=== PATIENT | male | born 1950 | race Caucasian/White ===

== ENCOUNTER 2022-11-16 13:48 | Outpatient (CLI) | payer BC | END 2022-11-16 13:49 | disposition home or self-care (01) | LOC: CSHWCC 13:48 | PROVIDERS: ATTEND Nurse Practitioner Family | DX: E11.621 Type 2 diabetes mellitus with foot ulcer (principal); L97.415 Non-pressure chronic ulcer of right heel and midfoot with muscle involvement without evidence of necrosis; R60.0 Localized edema | CPT/HCPCS: 99203; G0463 ==

== ENCOUNTER 2022-11-24 08:01 | Outpatient (CLI) | payer BC | END 2022-11-24 08:02 | disposition home or self-care (01) | LOC: CSHWCC 08:01 | PROVIDERS: ATTEND Nurse Practitioner Family | DX: E11.621 Type 2 diabetes mellitus with foot ulcer (principal); L97.415 Non-pressure chronic ulcer of right heel and midfoot with muscle involvement without evidence of necrosis; R60.0 Localized edema ==

== ENCOUNTER 2022-11-28 08:37 | Outpatient (CLI) | payer BC | END 2022-11-28 08:38 | disposition home or self-care (01) | LOC: CSHWCC 08:37 | PROVIDERS: ATTEND Nurse Practitioner Family | DX: E11.621 Type 2 diabetes mellitus with foot ulcer (principal); L97.415 Non-pressure chronic ulcer of right heel and midfoot with muscle involvement without evidence of necrosis; R60.0 Localized edema | CPT/HCPCS: 11042; 29445 ==

== ENCOUNTER 2022-12-26 11:00 | Outpatient (CLI) | payer BC | END 2022-12-26 11:01 | disposition home or self-care (01) | LOC: CSHWCC 11:00 | PROVIDERS: ATTEND Nurse Practitioner Family | DX: E11.621 Type 2 diabetes mellitus with foot ulcer (principal); L97.415 Non-pressure chronic ulcer of right heel and midfoot with muscle involvement without evidence of necrosis; R60.0 Localized edema | CPT/HCPCS: 29445 ==

== ENCOUNTER 2023-01-02 11:44 | Outpatient (CLI) | payer BC | END 2023-01-02 11:45 | disposition home or self-care (01) | LOC: CSHWCC 11:44 | PROVIDERS: ATTEND Nurse Practitioner Family | DX: E11.621 Type 2 diabetes mellitus with foot ulcer (principal); L97.415 Non-pressure chronic ulcer of right heel and midfoot with muscle involvement without evidence of necrosis; R60.0 Localized edema | CPT/HCPCS: 29445; 99212; G0463 ==

== ENCOUNTER → 2023-01-05 | Outpatient (CLI) | payer BC | LOC: CSHWCC 11:00 | PROVIDERS: ATTEND Nurse Practitioner Family | DX: E11.621 Type 2 diabetes mellitus with foot ulcer (principal); L97.415 Non-pressure chronic ulcer of right heel and midfoot with muscle involvement without evidence of necrosis; R60.0 Localized edema | CPT/HCPCS: 29445; 99212; G0463 ==

== ENCOUNTER 2023-01-19 09:42 | Outpatient (CLI) | payer BC | END 2023-01-19 09:43 | disposition home or self-care (01) | LOC: CSHWCC 09:42 | PROVIDERS: ATTEND Nurse Practitioner Family | DX: E11.621 Type 2 diabetes mellitus with foot ulcer (principal); L97.415 Non-pressure chronic ulcer of right heel and midfoot with muscle involvement without evidence of necrosis; R60.0 Localized edema | CPT/HCPCS: 29445; 29581; 97597 ==

== ENCOUNTER 2023-01-31 08:48 | Outpatient (CLI) | payer BC | END 2023-01-31 08:49 | disposition home or self-care (01) | LOC: CSHWCC 08:48 | PROVIDERS: ATTEND Nurse Practitioner Family | DX: E11.621 Type 2 diabetes mellitus with foot ulcer (principal); L97.415 Non-pressure chronic ulcer of right heel and midfoot with muscle involvement without evidence of necrosis | CPT/HCPCS: 29581; 99211; G0463 ==

== ENCOUNTER 2023-02-07 13:39 | Outpatient (CLI) | payer BC | END 2023-02-07 13:40 | disposition home or self-care (01) | LOC: CSHWCC 13:39 | PROVIDERS: ATTEND Nurse Practitioner Family | DX: R60.9 Edema, unspecified (principal) | CPT/HCPCS: 99213; G0463 ==

== ENCOUNTER 2023-02-21 14:49 | Outpatient (CLI) | payer BC | END 2023-02-21 14:50 | disposition home or self-care (01) | LOC: CSHWCC 14:49 | PROVIDERS: ATTEND Nurse Practitioner Family | DX: E11.621 Type 2 diabetes mellitus with foot ulcer (principal); L97.415 Non-pressure chronic ulcer of right heel and midfoot with muscle involvement without evidence of necrosis; R60.9 Edema, unspecified | CPT/HCPCS: 29445; 97597 ==

== ENCOUNTER 2023-03-01 08:29 | Outpatient (CLI) | payer BC | END 2023-03-01 08:30 | disposition home or self-care (01) | LOC: CSHWCC 08:29 | PROVIDERS: ATTEND Nurse Practitioner Family | DX: E11.621 Type 2 diabetes mellitus with foot ulcer (principal); L97.415 Non-pressure chronic ulcer of right heel and midfoot with muscle involvement without evidence of necrosis; R60.0 Localized edema | CPT/HCPCS: 99213; G0463 ==

== ENCOUNTER 2023-03-05 14:47 | Outpatient (CLI) | payer BC | END 2023-03-05 14:48 | disposition home or self-care (01) | LOC: CSHWCC 14:47 | PROVIDERS: ATTEND Nurse Practitioner Family | DX: E11.621 Type 2 diabetes mellitus with foot ulcer (principal); L97.415 Non-pressure chronic ulcer of right heel and midfoot with muscle involvement without evidence of necrosis | CPT/HCPCS: 97602 ==

== ENCOUNTER 2023-03-19 11:19 | Outpatient (CLI) | payer BC | END 2023-03-19 11:20 | disposition home or self-care (01) | LOC: CSHWCC 11:19 | PROVIDERS: ATTEND Nurse Practitioner Family | DX: E11.621 Type 2 diabetes mellitus with foot ulcer (principal); L97.419 Non-pressure chronic ulcer of right heel and midfoot with unspecified severity | CPT/HCPCS: 11042 ==

== ENCOUNTER 2023-03-29 14:09 | Outpatient (CLI) | payer BC | END 2023-03-29 14:10 | disposition home or self-care (01) | LOC: CSHWCC 14:09 | PROVIDERS: ATTEND Nurse Practitioner Family | DX: E11.621 Type 2 diabetes mellitus with foot ulcer (principal); L97.419 Non-pressure chronic ulcer of right heel and midfoot with unspecified severity | CPT/HCPCS: 97602 ==

== ENCOUNTER 2023-05-10 09:47 | Outpatient (CLI) | payer BC | END 2023-05-10 09:48 | disposition home or self-care (01) | LOC: CSHWCC 09:47 | PROVIDERS: ATTEND Preventive Medicine Undersea and Hyperbaric Medicine | DX: E11.621 Type 2 diabetes mellitus with foot ulcer (principal); L97.419 Non-pressure chronic ulcer of right heel and midfoot with unspecified severity | CPT/HCPCS: 99212; G0463 ==

== ENCOUNTER 2023-06-20 09:16 | Outpatient (CLI) | payer BC | END 2023-06-20 09:17 | disposition home or self-care (01) | LOC: CSHWCC 09:16 | PROVIDERS: ATTEND Preventive Medicine Undersea and Hyperbaric Medicine | DX: E11.621 Type 2 diabetes mellitus with foot ulcer (principal); L97.419 Non-pressure chronic ulcer of right heel and midfoot with unspecified severity | CPT/HCPCS: 99213; G0463 ==

== ENCOUNTER 2023-07-03 10:29 | Outpatient (CLI) | payer BC | END 2023-07-03 10:30 | disposition home or self-care (01) | LOC: CSHWCC 10:29 | PROVIDERS: ATTEND Physician Assistant | DX: E11.621 Type 2 diabetes mellitus with foot ulcer (principal); L97.419 Non-pressure chronic ulcer of right heel and midfoot with unspecified severity | CPT/HCPCS: 97597 ==

== ENCOUNTER 2023-07-05 10:04 | Outpatient (CLI) | payer BC | END 2023-07-05 10:05 | disposition home or self-care (01) | LOC: CSHWCC 10:04 | PROVIDERS: ATTEND Physician Assistant | DX: E11.621 Type 2 diabetes mellitus with foot ulcer (principal); L97.419 Non-pressure chronic ulcer of right heel and midfoot with unspecified severity | CPT/HCPCS: 29581; 99212; G0463 ==

== ENCOUNTER 2023-07-09 09:49 | Outpatient (CLI) | payer BC | END 2023-07-09 09:50 | disposition home or self-care (01) | LOC: CSHWCC 09:49 | PROVIDERS: ATTEND Physician Assistant | DX: E11.621 Type 2 diabetes mellitus with foot ulcer (principal); L97.419 Non-pressure chronic ulcer of right heel and midfoot with unspecified severity | CPT/HCPCS: 99211; G0463 ==

== ENCOUNTER 2023-07-30 13:23 | Outpatient (CLI) | payer BC | END 2023-07-30 13:24 | disposition home or self-care (01) | LOC: CSHWCC 13:23 | PROVIDERS: ATTEND Preventive Medicine Undersea and Hyperbaric Medicine | DX: E11.621 Type 2 diabetes mellitus with foot ulcer (principal); L97.419 Non-pressure chronic ulcer of right heel and midfoot with unspecified severity; L03.115 Cellulitis of right lower limb | CPT/HCPCS: 11042; 87070; 87077; 87186; 87205; 99213; G0463 ==

== ENCOUNTER 2023-08-03 11:18 | Outpatient (CLI) | payer BC | END 2023-08-03 11:19 | disposition home or self-care (01) | LOC: CSHWCC 11:18 | PROVIDERS: ATTEND Preventive Medicine Undersea and Hyperbaric Medicine | DX: E11.621 Type 2 diabetes mellitus with foot ulcer (principal); L97.419 Non-pressure chronic ulcer of right heel and midfoot with unspecified severity; L03.115 Cellulitis of right lower limb | CPT/HCPCS: 11042 ==

== ENCOUNTER 2023-08-08 09:09 | Outpatient (CLI) | payer BC | END 2023-08-08 09:10 | disposition home or self-care (01) | LOC: CSHWCC 09:09 | PROVIDERS: ATTEND Preventive Medicine Undersea and Hyperbaric Medicine | DX: E11.621 Type 2 diabetes mellitus with foot ulcer (principal); L97.419 Non-pressure chronic ulcer of right heel and midfoot with unspecified severity; L03.115 Cellulitis of right lower limb | CPT/HCPCS: 99213; G0463 ==

== ENCOUNTER 2023-08-15 10:04 | Outpatient (CLI) | payer BC | END 2023-08-15 10:05 | disposition home or self-care (01) | LOC: CSHWCC 10:04 | PROVIDERS: ATTEND Physician Assistant | DX: E11.621 Type 2 diabetes mellitus with foot ulcer (principal); L97.419 Non-pressure chronic ulcer of right heel and midfoot with unspecified severity; L03.115 Cellulitis of right lower limb | CPT/HCPCS: 11042 ==

== ENCOUNTER 2023-08-22 14:57 | Outpatient (CLI) | payer BC | END 2023-08-22 14:58 | disposition home or self-care (01) | LOC: CSHWCC 14:57 | PROVIDERS: ATTEND Physician Assistant | DX: E11.621 Type 2 diabetes mellitus with foot ulcer (principal); L97.419 Non-pressure chronic ulcer of right heel and midfoot with unspecified severity | CPT/HCPCS: 97597 ==

== ENCOUNTER 2023-08-31 09:29 | Outpatient (CLI) | payer BC | END 2023-08-31 09:30 | disposition home or self-care (01) | LOC: CSHWCC 09:29 | PROVIDERS: ATTEND Nurse Practitioner Family | DX: E11.621 Type 2 diabetes mellitus with foot ulcer (principal); L97.419 Non-pressure chronic ulcer of right heel and midfoot with unspecified severity | CPT/HCPCS: 11042 ==

== ENCOUNTER 2023-09-05 14:12 | Outpatient (CLI) | payer BC | END 2023-09-05 14:13 | disposition home or self-care (01) | LOC: CSHWCC 14:12 | PROVIDERS: ATTEND Nurse Practitioner Family | DX: E11.621 Type 2 diabetes mellitus with foot ulcer (principal); L97.419 Non-pressure chronic ulcer of right heel and midfoot with unspecified severity | CPT/HCPCS: 11042 ==

== ENCOUNTER 2023-09-12 16:36 | Outpatient (CLI) | payer BC | END 2023-09-12 16:37 | disposition home or self-care (01) | LOC: CSHWCC 16:36 | PROVIDERS: ATTEND Nurse Practitioner Family | DX: E11.621 Type 2 diabetes mellitus with foot ulcer (principal); L97.419 Non-pressure chronic ulcer of right heel and midfoot with unspecified severity | CPT/HCPCS: 11042 ==

== ENCOUNTER 2023-09-19 10:52 | Outpatient (CLI) | payer BC | END 2023-09-19 10:53 | disposition home or self-care (01) | LOC: CSHWCC 10:52 | PROVIDERS: ATTEND Nurse Practitioner Family | DX: E11.621 Type 2 diabetes mellitus with foot ulcer (principal); L97.419 Non-pressure chronic ulcer of right heel and midfoot with unspecified severity | CPT/HCPCS: 11042 ==

== ENCOUNTER 2023-10-02 | Outpatient (CLI) | payer BC | END 2023-10-02 13:24 | disposition home or self-care (01) | DX: E11.621 Type 2 diabetes mellitus with foot ulcer (principal); L97.419 Non-pressure chronic ulcer of right heel and midfoot with unspecified severity ==

== ENCOUNTER 2023-10-17 17:11 | Outpatient (CLI) | payer BC, MEDICARE | END 2023-10-17 17:12 | disposition home or self-care (01) | LOC: CSHWCC 17:11 | PROVIDERS: ATTEND Nurse Practitioner Family | DX: E11.621 Type 2 diabetes mellitus with foot ulcer (principal); L97.419 Non-pressure chronic ulcer of right heel and midfoot with unspecified severity | CPT/HCPCS: 11042 ==

== ENCOUNTER 2023-11-26 16:29 | Outpatient (CLI) | payer BC | END 2023-11-26 16:30 | disposition home or self-care (01) | LOC: CSHWCC 16:29 | PROVIDERS: ATTEND Family Medicine | DX: E11.621 Type 2 diabetes mellitus with foot ulcer (principal); L97.419 Non-pressure chronic ulcer of right heel and midfoot with unspecified severity | CPT/HCPCS: 29445 ==

== ENCOUNTER 2023-12-26 13:25 | Outpatient (CLI) | payer BC | END 2023-12-26 13:26 | disposition home or self-care (01) | LOC: CSHWCC 13:25 | PROVIDERS: ATTEND Nurse Practitioner Family | DX: E11.621 Type 2 diabetes mellitus with foot ulcer (principal); L97.419 Non-pressure chronic ulcer of right heel and midfoot with unspecified severity | CPT/HCPCS: 11042 ==

== ENCOUNTER → 2024-01-02 | Outpatient (CLI) | payer BC | LOC: CSHWCC 13:00 | PROVIDERS: ATTEND Nurse Practitioner Family | DX: E11.621 Type 2 diabetes mellitus with foot ulcer (principal); L97.419 Non-pressure chronic ulcer of right heel and midfoot with unspecified severity | CPT/HCPCS: 11042 ==

== ENCOUNTER 2024-01-11 14:55 | Outpatient (CLI) | payer BC | END 2024-01-11 14:56 | disposition home or self-care (01) | LOC: CSHWCC 14:55 | PROVIDERS: ATTEND Preventive Medicine Undersea and Hyperbaric Medicine | DX: E11.621 Type 2 diabetes mellitus with foot ulcer (principal); L97.419 Non-pressure chronic ulcer of right heel and midfoot with unspecified severity | CPT/HCPCS: 99213; G0463 ==

== ENCOUNTER 2024-01-16 14:48 | Outpatient (CLI) | payer BC | END 2024-01-16 14:49 | disposition home or self-care (01) | LOC: CSHWCC 14:48 | PROVIDERS: ATTEND Nurse Practitioner Family | DX: E11.621 Type 2 diabetes mellitus with foot ulcer (principal); L97.419 Non-pressure chronic ulcer of right heel and midfoot with unspecified severity | CPT/HCPCS: 11042 ==

== ENCOUNTER 2024-01-23 16:24 | Outpatient (CLI) | payer BC | END 2024-01-23 16:25 | disposition home or self-care (01) | LOC: CSHWCC 16:24 | PROVIDERS: ATTEND Nurse Practitioner Family | DX: E11.621 Type 2 diabetes mellitus with foot ulcer (principal); L97.419 Non-pressure chronic ulcer of right heel and midfoot with unspecified severity | CPT/HCPCS: 11042 ==

== ENCOUNTER → 2024-01-30 | Outpatient (CLI) | payer BC | LOC: CSHWCC 16:08 | PROVIDERS: ATTEND Nurse Practitioner Family | DX: E11.621 Type 2 diabetes mellitus with foot ulcer (principal); L97.419 Non-pressure chronic ulcer of right heel and midfoot with unspecified severity | CPT/HCPCS: 11042 ==

== ENCOUNTER 2024-02-06 15:37 | Outpatient (CLI) | payer BC | END 2024-02-06 15:38 | disposition home or self-care (01) | LOC: CSHWCC 15:37 | PROVIDERS: ATTEND Nurse Practitioner Family | DX: E11.621 Type 2 diabetes mellitus with foot ulcer (principal); L97.419 Non-pressure chronic ulcer of right heel and midfoot with unspecified severity | CPT/HCPCS: 11042 ==

== ENCOUNTER 2024-02-13 14:18 | Outpatient (CLI) | payer BC, MEDICARE | END 2024-02-13 14:19 | disposition home or self-care (01) | LOC: CSHWCC 14:18 | PROVIDERS: ATTEND Nurse Practitioner Family | DX: E11.621 Type 2 diabetes mellitus with foot ulcer (principal); L97.419 Non-pressure chronic ulcer of right heel and midfoot with unspecified severity | CPT/HCPCS: 97597 ==

== ENCOUNTER 2024-03-14 14:30 | Outpatient (CLI) | payer BC, MEDICARE | END 2024-03-14 14:31 | disposition home or self-care (01) | LOC: CSHWCC 14:30 | PROVIDERS: ATTEND Nurse Practitioner Family | DX: E11.621 Type 2 diabetes mellitus with foot ulcer (principal); L97.419 Non-pressure chronic ulcer of right heel and midfoot with unspecified severity | CPT/HCPCS: 11042 ==

== ENCOUNTER 2024-04-09 14:53 | Outpatient (CLI) | payer BC | END 2024-04-09 14:54 | disposition home or self-care (01) | LOC: CSHWCC 14:53 | PROVIDERS: ATTEND Nurse Practitioner Family | DX: S80.812D Abrasion, left lower leg, subsequent encounter (principal); E11.621 Type 2 diabetes mellitus with foot ulcer; L97.419 Non-pressure chronic ulcer of right heel and midfoot with unspecified severity; L97.422 Non-pressure chronic ulcer of left heel and midfoot with fat layer exposed | CPT/HCPCS: 11042; 97597 ==

== ENCOUNTER 2024-04-16 13:07 | Outpatient (CLI) | payer BC | END 2024-04-16 13:08 | disposition home or self-care (01) | LOC: CSHWCC 13:07 | PROVIDERS: ATTEND Nurse Practitioner Family | DX: S80.812D Abrasion, left lower leg, subsequent encounter (principal); E11.621 Type 2 diabetes mellitus with foot ulcer; L97.419 Non-pressure chronic ulcer of right heel and midfoot with unspecified severity; L97.422 Non-pressure chronic ulcer of left heel and midfoot with fat layer exposed | CPT/HCPCS: 11042 ==

== ENCOUNTER 2024-04-22 13:21 | Outpatient (CLI) | payer BC | END 2024-04-22 13:22 | disposition home or self-care (01) | LOC: CSHWCC 13:21 | PROVIDERS: ATTEND Nurse Practitioner Family | DX: E11.621 Type 2 diabetes mellitus with foot ulcer (principal); L97.419 Non-pressure chronic ulcer of right heel and midfoot with unspecified severity; S80.812D Abrasion, left lower leg, subsequent encounter; L97.422 Non-pressure chronic ulcer of left heel and midfoot with fat layer exposed | CPT/HCPCS: 99212; G0463 ==

== ENCOUNTER 2024-05-05 11:32 | Outpatient (CLI) | payer BC | END 2024-05-05 11:33 | disposition home or self-care (01) | LOC: CSHWCC 11:32 | PROVIDERS: ATTEND Nurse Practitioner Family | DX: S80.812D Abrasion, left lower leg, subsequent encounter (principal); E11.621 Type 2 diabetes mellitus with foot ulcer; L97.419 Non-pressure chronic ulcer of right heel and midfoot with unspecified severity; L97.422 Non-pressure chronic ulcer of left heel and midfoot with fat layer exposed | CPT/HCPCS: 11042 ==

== ENCOUNTER 2024-05-20 12:50 | Outpatient (CLI) | payer BC | END 2024-05-20 12:51 | disposition home or self-care (01) | LOC: CSHWCC 12:50 | PROVIDERS: ATTEND Nurse Practitioner Family | DX: E11.621 Type 2 diabetes mellitus with foot ulcer (principal); L97.419 Non-pressure chronic ulcer of right heel and midfoot with unspecified severity; L97.422 Non-pressure chronic ulcer of left heel and midfoot with fat layer exposed; S80.812D Abrasion, left lower leg, subsequent encounter | CPT/HCPCS: 97597 ==

== ENCOUNTER 2024-05-27 12:57 | Outpatient (CLI) | payer BC | END 2024-05-27 12:58 | disposition home or self-care (01) | LOC: CSHWCC 12:57 | PROVIDERS: ATTEND Nurse Practitioner Family | DX: S80.812D Abrasion, left lower leg, subsequent encounter (principal); E11.621 Type 2 diabetes mellitus with foot ulcer; L97.419 Non-pressure chronic ulcer of right heel and midfoot with unspecified severity; L97.422 Non-pressure chronic ulcer of left heel and midfoot with fat layer exposed | CPT/HCPCS: 97597 ==

== ENCOUNTER 2024-06-03 14:08 | Outpatient (CLI) | payer BC | END 2024-06-03 14:09 | disposition home or self-care (01) | LOC: CSHWCC 14:08 | PROVIDERS: ATTEND Nurse Practitioner Family | DX: S80.812D Abrasion, left lower leg, subsequent encounter (principal); E11.621 Type 2 diabetes mellitus with foot ulcer; L97.422 Non-pressure chronic ulcer of left heel and midfoot with fat layer exposed; L97.419 Non-pressure chronic ulcer of right heel and midfoot with unspecified severity | CPT/HCPCS: 11042 ==

== ENCOUNTER 2024-06-10 14:04 | Outpatient (CLI) | payer BC | END 2024-06-10 14:05 | disposition home or self-care (01) | LOC: CSHWCC 14:04 | PROVIDERS: ATTEND Nurse Practitioner Family | DX: S80.812D Abrasion, left lower leg, subsequent encounter (principal); E11.621 Type 2 diabetes mellitus with foot ulcer; L97.422 Non-pressure chronic ulcer of left heel and midfoot with fat layer exposed; L97.419 Non-pressure chronic ulcer of right heel and midfoot with unspecified severity | CPT/HCPCS: 11042 ==

== ENCOUNTER 2024-06-16 10:40 | Outpatient (CLI) | payer BC | END 2024-06-16 10:41 | disposition home or self-care (01) | LOC: CSHWCC 10:40 | PROVIDERS: ATTEND Nurse Practitioner Family | DX: E11.621 Type 2 diabetes mellitus with foot ulcer (principal); L97.419 Non-pressure chronic ulcer of right heel and midfoot with unspecified severity | CPT/HCPCS: 11042 ==

== ENCOUNTER 2024-06-23 12:40 | Outpatient (CLI) | payer BC | END 2024-06-23 12:41 | disposition home or self-care (01) | LOC: CSHWCC 12:40 | PROVIDERS: ATTEND Nurse Practitioner Family | DX: E11.621 Type 2 diabetes mellitus with foot ulcer (principal); L97.419 Non-pressure chronic ulcer of right heel and midfoot with unspecified severity; M21.371 Foot drop, right foot | CPT/HCPCS: 29445 ==

== ENCOUNTER 2024-06-30 13:39 | Outpatient (CLI) | payer BC | END 2024-06-30 13:40 | disposition home or self-care (01) | LOC: CSHWCC 13:39 | PROVIDERS: ATTEND Family Medicine | DX: L97.419 Non-pressure chronic ulcer of right heel and midfoot with unspecified severity (principal); E11.621 Type 2 diabetes mellitus with foot ulcer; M21.371 Foot drop, right foot | CPT/HCPCS: 11042 ==

== ENCOUNTER 2024-07-04 08:52 | Outpatient (CLI) | payer BC | END 2024-07-04 08:53 | disposition home or self-care (01) | LOC: CSHWCC 08:52 | PROVIDERS: ATTEND Nurse Practitioner Family | DX: E11.621 Type 2 diabetes mellitus with foot ulcer (principal); L97.419 Non-pressure chronic ulcer of right heel and midfoot with unspecified severity; M21.371 Foot drop, right foot | CPT/HCPCS: 99212; G0463 ==

== ENCOUNTER 2024-07-11 10:37 | Outpatient (CLI) | payer BC | END 2024-07-11 10:38 | disposition home or self-care (01) | LOC: CSHWCC 10:37 | PROVIDERS: ATTEND Nurse Practitioner Family | DX: E11.621 Type 2 diabetes mellitus with foot ulcer (principal); L97.512 Non-pressure chronic ulcer of other part of right foot with fat layer exposed; L97.419 Non-pressure chronic ulcer of right heel and midfoot with unspecified severity; M21.371 Foot drop, right foot | CPT/HCPCS: 11042; 99212; G0463 ==

== ENCOUNTER 2024-07-22 16:23 | Outpatient (CLI) | payer BC | END 2024-07-22 16:24 | disposition home or self-care (01) | LOC: CSHRAD 16:23 | PROVIDERS: ATTEND Nurse Practitioner Family | DX: L97.512 Non-pressure chronic ulcer of other part of right foot with fat layer exposed (principal); Z89.422 Acquired absence of other left toe(s); M79.89 Other specified soft tissue disorders ==

== ENCOUNTER 2024-07-22 16:39 | Outpatient (CLI) | payer BC | END 2024-07-22 16:40 | disposition home or self-care (01) | LOC: CSHWCC 16:39 | PROVIDERS: ATTEND Nurse Practitioner Family | DX: E11.621 Type 2 diabetes mellitus with foot ulcer (principal); L97.512 Non-pressure chronic ulcer of other part of right foot with fat layer exposed; L97.419 Non-pressure chronic ulcer of right heel and midfoot with unspecified severity; M21.371 Foot drop, right foot | CPT/HCPCS: 11042; 99213; G0463 ==

== ENCOUNTER 2024-07-28 14:01 | Outpatient (CLI) | payer BC | END 2024-07-28 14:02 | disposition home or self-care (01) | LOC: CSHWCC 14:01 | PROVIDERS: ATTEND Nurse Practitioner Family | DX: E11.621 Type 2 diabetes mellitus with foot ulcer (principal); L97.512 Non-pressure chronic ulcer of other part of right foot with fat layer exposed; L97.419 Non-pressure chronic ulcer of right heel and midfoot with unspecified severity; M21.371 Foot drop, right foot | CPT/HCPCS: 97597; 99212; G0463 ==

== ENCOUNTER 2024-08-05 13:51 | Outpatient (CLI) | payer BC | END 2024-08-05 13:52 | disposition home or self-care (01) | LOC: CSHWCC 13:51 | PROVIDERS: ATTEND Nurse Practitioner Family | DX: E11.621 Type 2 diabetes mellitus with foot ulcer (principal); L97.419 Non-pressure chronic ulcer of right heel and midfoot with unspecified severity; L97.512 Non-pressure chronic ulcer of other part of right foot with fat layer exposed; M21.371 Foot drop, right foot | CPT/HCPCS: 11042; 99213; G0463 ==

== ENCOUNTER 2024-08-13 12:20 | Outpatient (CLI) | payer BC | END 2024-08-13 12:21 | disposition home or self-care (01) | LOC: CSHWCC 12:20 | PROVIDERS: ATTEND Nurse Practitioner Family | DX: E11.621 Type 2 diabetes mellitus with foot ulcer (principal); L97.512 Non-pressure chronic ulcer of other part of right foot with fat layer exposed; L97.419 Non-pressure chronic ulcer of right heel and midfoot with unspecified severity; M21.371 Foot drop, right foot | CPT/HCPCS: 11042; 99212; G0463 ==

== ENCOUNTER 2024-08-28 14:05 | Outpatient (CLI) | payer BC | END 2024-08-28 14:06 | disposition home or self-care (01) | LOC: CSHWCC 14:05 | PROVIDERS: ATTEND Nurse Practitioner Family | DX: E11.621 Type 2 diabetes mellitus with foot ulcer (principal); L97.419 Non-pressure chronic ulcer of right heel and midfoot with unspecified severity; M21.371 Foot drop, right foot; M86.171 Other acute osteomyelitis, right ankle and foot | CPT/HCPCS: 11042; 99212; G0463 ==

== ENCOUNTER 2024-09-01 11:30 | Outpatient (CLI) | payer BC | END 2024-09-01 11:31 | disposition home or self-care (01) | LOC: CSHWCC 11:30 | PROVIDERS: ATTEND Nurse Practitioner Family | DX: E11.621 Type 2 diabetes mellitus with foot ulcer (principal); L97.419 Non-pressure chronic ulcer of right heel and midfoot with unspecified severity; M21.371 Foot drop, right foot; M86.171 Other acute osteomyelitis, right ankle and foot | CPT/HCPCS: 11042 ==

== ENCOUNTER 2024-09-09 14:12 | Outpatient (CLI) | payer BC | END 2024-09-09 14:13 | disposition home or self-care (01) | LOC: CSHWCC 14:12 | PROVIDERS: ATTEND Nurse Practitioner Family | DX: E11.621 Type 2 diabetes mellitus with foot ulcer (principal); L97.419 Non-pressure chronic ulcer of right heel and midfoot with unspecified severity; M21.371 Foot drop, right foot; M86.171 Other acute osteomyelitis, right ankle and foot | CPT/HCPCS: 11042; 99212; G0463 ==